=== PATIENT | male | born 1940 | race Caucasian/White ===

== ENCOUNTER 2019-08-01 06:08 | Inpatient (IN) ==
[~2019-08-01 06:08] MED LIST: Aspirin 81 MG TAB.CHEW PO ONE; Dextrose 50 % in Water (Vial) 30 ML, Sodium Bicarbonate 20 MEQ, Lidocaine 1% 5 ML, Insu... TH ONE; Dextrose 50 % in Water (Vial) 30 ML, Sodium Bicarbonate 20 MEQ, Potassium Chloride 15 M... TH ONE; Heparin 15,000 UNIT in 0.9 % Sodium Chloride 500 ML IV ONE; Insulin Human Regular 100 UNIT in 0.9 % Sodium Chloride 100 ML IV PRN; Norepinephrine 4 MG in 0.9 % Sodium Chloride 250 ML IVC PRN
[2019-08-01] MEDS ORDERED: CeFAZolin Syr 2,000MG/20 ML 2,000 MG/20 ML SYRINGE IVPB ONE (06:24)
[2019-08-01] MEDS ORDERED: Albuterol 2.5 MG/3 ML NEBULIZER IH PRN (06:27)
[2019-08-01] MEDS ORDERED: NiCARdipine 2.5 MG/10 ML Syringe IVPB ONE (06:35)
[2019-08-01] MEDS ORDERED: Nitroglycerin 25 MG/250 ML INFUS..BTL IVC ONE (06:35)
[2019-08-01] MEDS ORDERED: EPHEDrine 50 MG/ML VIAL ONE (06:45)
[2019-08-01] MEDS ORDERED: Famotidine 20 MG/2 ML VIAL ONE (06:45)
[2019-08-01] MEDS ORDERED: *HR* Rocuronium Bromide 50 MG/5 ML VIAL ONE (06:45)
[2019-08-01] MEDS ORDERED: *HR* Midazolam HCl 5 MG/5 ML VIAL IVP ONE (06:45)
[2019-08-01] MEDS ORDERED: *HR* PHENYLEPHRINE 1,000 MCG/10 ML SYRINGE IVP ONE ×2 (06:45→10:42)
[2019-08-01] MEDS ORDERED: *HR* FentaNYL (PF) 1,000 MCG/20 ML VIAL ONE (06:45)
[2019-08-01] MEDS ORDERED: *HR* Etomidate 20 MG/10 ML AMPUL IVP ONE (06:45)
[2019-08-01] MEDS ORDERED: Protamine Sulfate 250 MG/25 ML VIAL IVP ONE (06:46)
[2019-08-01] MEDS ORDERED: Calcium Gluconate 1,000 MG/10 ML VIAL ONE (06:46)
[2019-08-01] MEDS ORDERED: Tranexamic Acid 1,000 MG/10 ML VIAL ONE ×2 (06:46→09:19)
[2019-08-01] MEDS ORDERED: Verapamil 5 MG/2 ML VIAL ONE (06:56)
[2019-08-01] MEDS: Chlorhexidine Rinse 15 ML MOUTHWASH MM SCH ×3 (07:01→20:01)
[2019-08-01 08:59] LABS: ABG Base Excess -3 mEq/L (-2 to 3); ABG Chloride 109 mEq/L (98-107); ABG Glucose 161 mg/dL (60-95); ABG HCO3 24 mEq/L (21-27); ABG Ionized Calcium 1.32 mmol/L (1.15-1.35); ABG Oxygen Saturation 94 % (95-98); ABG PCO2 48 mmHg (35-45); ABG PH 7.31 pH Units (7.32-7.45); ABG PO2 79 mmHg (85-104); ABG TCO2 25 mEq/L (20-26)
[2019-08-01 09:44] LABS: ABG Base Excess -5 mEq/L (-2 to 3); ABG Chloride 111 mEq/L (98-107); ABG Glucose 197 mg/dL (60-95); ABG HCO3 21 mEq/L (21-27); ABG Ionized Calcium 1.18 mmol/L (1.15-1.35); ABG Oxygen Saturation 99 % (95-98); ABG PCO2 42 mmHg (35-45); ABG PH 7.32 pH Units (7.32-7.45); ABG PO2 146 mmHg (85-104); ABG TCO2 23 mEq/L (20-26)
[2019-08-01 09:54] LABS: ABG Base Excess 0 mEq/L (-2 to 3); ABG Chloride 104 mEq/L (98-107); ABG Glucose 261 mg/dL (60-95); ABG HCO3 25 mEq/L (21-27); ABG Ionized Calcium 1.07 mmol/L (1.15-1.35); ABG Oxygen Saturation 100 % (95-98); ABG PCO2 40 mmHg (35-45); ABG PO2 499 mmHg (85-104); ABG TCO2 26 mEq/L (20-26)
[2019-08-01 10:42] LABS: ABG Base Excess 0 mEq/L (-2 to 3); ABG Chloride 105 mEq/L (98-107); ABG Glucose 186 mg/dL (60-95); ABG HCO3 25 mEq/L (21-27); ABG Ionized Calcium 1.26 mmol/L (1.15-1.35); ABG Oxygen Saturation 100 % (95-98); ABG PCO2 41 mmHg (35-45); ABG PH 7.39 pH Units (7.32-7.45); ABG PO2 368 mmHg (85-104); ABG TCO2 26 mEq/L (20-26)
[2019-08-01] MEDS ORDERED: *HR* Magnesium Sulfate 2 GM/50 ML PIGGYBACK IVPB ONE (10:42)
[2019-08-01] MEDS ORDERED: *HR* EPINEPHrine 1 MG/10 ML SYRINGE ONE (10:42)
[2019-08-01] MEDS ORDERED: Tranexamic Acid 1,000 MG/10 ML VIAL IVP ONE (10:42)
[2019-08-01] MEDS ORDERED: *HR* Phenylephrine 10 MG/ML VIAL IVC ONE (10:42)
[2019-08-01] MEDS ORDERED: Albumin Human 25% 25 GM/100 ML IV.SOLN IV ONE (10:42)
[2019-08-01] MEDS ORDERED: Mannitol 25% vial 12.5 GM/50 ML VIAL IVP ONE (10:42)
[2019-08-01] MEDS ORDERED: *HR* Heparin 10,000 UNIT/10 ML VIAL IV ONE (10:42)
[2019-08-01] MEDS ORDERED: Lidocaine 2% Syringe 100 MG/5 ML IV ONE (10:42)
[2019-08-01 11:05] LABS: ABG Base Excess -4 mEq/L (-2 to 3); ABG Chloride 107 mEq/L (98-107); ABG Glucose 136 mg/dL (60-95); ABG HCO3 22 mEq/L (21-27); ABG Ionized Calcium 1.29 mmol/L (1.15-1.35); ABG Oxygen Saturation 97 % (95-98); ABG PCO2 45 mmHg (35-45); ABG PH 7.31 pH Units (7.32-7.45); ABG PO2 106 mmHg (85-104); ABG TCO2 24 mEq/L (20-26)
[2019-08-01] MEDS ORDERED: *HR* Promethazine 25 MG/ML VIAL IVP PRN (11:28)
[2019-08-01] MEDS ORDERED: *HR* Dextrose 50 % in Water (Syg) 50 ML SYRINGE IVP PRN (11:28)
[2019-08-01] MEDS ORDERED: Insulin Regular, Human 100 UNIT/ML IV PRN (11:28)
[2019-08-01] MEDS ORDERED: Acetaminophen 325 MG TABLET PO PRN (11:28)
[2019-08-01] MEDS ORDERED: Potassium Chloride 40 MEQ/200 ML BAG IVPB PRN (11:28)
[2019-08-01] MEDS ORDERED: Ondansetron 4 MG/2 ML VIAL IVP PRN (11:28)
[2019-08-01 11:47] LABS: ABG Base Excess 1 mEq/L (-2 to 3); ABG HCO3 26 mEq/L (21-27); ABG Oxygen Saturation 100 % (95-98); ABG PCO2 47 mmHg (35-45); ABG PH 7.36 pH Units (7.32-7.45); ABG PO2 541 mmHg (85-104); ABG TCO2 28 mEq/L (20-26); Blood Gas VT 600 cc
[2019-08-01 11:55] LABS: Basophils # 0.1 K/mcL (0.0-0.2); Basophils % 0.4 %; Eosinophils # 0.1 K/mcL (0.0-0.6); Eosinophils % 0.7 %; Immature Granulocytes % 1.1 % (0-4); Lymphocytes # 2.4 K/mcL (0.6-4.6); Lymphocytes % 12.9 %; Mean Corpuscular HGB Conc 35.5 g/dL (31.6-35.5); Mean Corpuscular Volume 93.1 fL (83.0-100.0); Mean Platelet Volume 9.5 fL (9.4-12.4); Monocytes # 1.2 K/mcL (0.0-1.3); Monocytes % 6.2 %; Neutrophils # 14.7 K/mcL (1.6-8.9); Platelet Count 274 K/mcL (140-400); Red Blood Count 3.33 M/mcL (4.19-5.50); Red Cell Distribution Width 12.9 % (11.5-14.5); Segmented Neutrophils % 78.7 %; White Blood Count 18.7 K/mcL (4.3-11.1)
[2019-08-01 12:02] LABS: INR 1.4; Prothrombin Time 15.8 Seconds (9.4-12.1)
[2019-08-01 12:05] LABS: Activated Partial Thrombo Time 28.8 Seconds (26.0-36.0)
[2019-08-01 12:10] LABS: BUN/Creatinine Ratio 15 (6-26); Blood Urea Nitrogen 19 mg/dL (8-23); Calcium 8.9 mg/dL (8.6-10.3); Carbon Dioxide 23 mEq/L (23-29); Chloride 110 mEq/L (98-107); Glucose 101 mg/dL (70-105); Magnesium 2.3 mg/dL (1.6-2.6); Osmolality,Calculated 296 (280-300); Potassium 4.1 mEq/L (3.5-5.1); Sodium 142 mEq/L (136-145); eGFR For African Americans > 60 (> 60); eGFR For Non-African Americans 56 (> 60)
[2019-08-01] MEDS ORDERED: *HR* FentaNYL (PF) 100 MCG/2 ML VIAL ONE (12:43)
[2019-08-01] MEDS: *HR* FentaNYL (PF) 100 MCG/2 ML VIAL IVP PRN ×4 (12:44→19:21)
[2019-08-01] MEDS: Nitroglycerin 25 MG/250 ML INFUS..BTL IVC SCH ×3 (12:47→21:03)
[2019-08-01] MEDS: EPINEPHrine 1 MG in D5% in Water 250 ML IVC SCH (12:49)
[2019-08-01] MEDS: Ringers Solution, Lactated 1,000 ML IVC SCH ×2 (12:50→19:00)
[2019-08-01] MEDS: niCARdipine 20 MG/200 ML MLS IVC SCH ×4 (12:54→21:03)
[2019-08-01] MEDS: 0.9 % Sodium Chloride 1,000 ML IVC SCH (13:08)
[2019-08-01] MEDS: *HR* OxyCODONE/APAP 5/325 TABLET PO PRN (13:21)
[2019-08-01] MEDS: Insulin Human Regular 100 UNIT in 0.9 % Sodium Chloride 100 ML IVC SCH (15:00)
[2019-08-01] MEDS: Norepinephrine 4 MG in 0.9 % Sodium Chloride 250 ML IVC SCH (15:00)
[2019-08-01 16:19] LABS: ABG Base Excess 1 mEq/L (-2 to 3); ABG HCO3 26 mEq/L (21-27); ABG Oxygen Saturation 99 % (95-98); ABG PCO2 42 mmHg (35-45); ABG PO2 144 mmHg (85-104); ABG TCO2 28 mEq/L (20-26); Blood Gas VT 600 cc
[2019-08-01 17:44] LABS: ABG Base Excess 0 mEq/L (-2 to 3); ABG HCO3 25 mEq/L (21-27); ABG Oxygen Saturation 98 % (95-98); ABG PCO2 44 mmHg (35-45); ABG PH 7.37 pH Units (7.32-7.45); ABG PO2 99 mmHg (85-104); ABG TCO2 27 mEq/L (20-26); Blood Gas Modality ASSIST CONTROL; Blood Gas Pressure Support 8 cm H2O
[2019-08-02] MEDS: 0.9 % Sodium Chloride 1,000 ML IVC SCH ×2 (00:31→09:43)
[2019-08-02 03:11] LABS: Basophils % 0.3 %; Eosinophils % 0.1 %; Hematocrit 32.3 % (37.5-50.1); Hemoglobin 11.1 g/dL (12.9-16.9); Immature Granulocytes % 0.3 % (0-4); Lymphocytes # 2.1 K/mcL (0.6-4.6); Lymphocytes % 20.1 %; Mean Corpuscular HGB Conc 34.4 g/dL (31.6-35.5); Mean Corpuscular Hemoglobin 33.2 pg (28.0-33.3); Mean Corpuscular Volume 96.7 fL (83.0-100.0); Mean Platelet Volume 10.1 fL (9.4-12.4); Monocytes # 1.4 K/mcL (0.0-1.3); Monocytes % 13.1 %; Neutrophils # 6.9 K/mcL (1.6-8.9); Platelet Count 242 K/mcL (140-400); Red Blood Count 3.34 M/mcL (4.19-5.50); Red Cell Distribution Width 13.3 % (11.5-14.5); Segmented Neutrophils % 66.1 %; White Blood Count 10.5 K/mcL (4.3-11.1)
[2019-08-02 03:30] LABS: BUN/Creatinine Ratio 16 (6-26); Blood Urea Nitrogen 19 mg/dL (8-23); Calcium 8.4 mg/dL (8.6-10.3); Carbon Dioxide 23 mEq/L (23-29); Chloride 111 mEq/L (98-107); Glucose 140 mg/dL (70-105); Osmolality,Calculated 297 (280-300); Potassium 4.1 mEq/L (3.5-5.1); Sodium 141 mEq/L (136-145); eGFR For African Americans > 60 (> 60); eGFR For Non-African Americans 58 (> 60)
[2019-08-02] MEDS: *HR* OxyCODONE/APAP 5/325 TABLET PO PRN ×4 (05:29→19:33)
[2019-08-02] MEDS: niCARdipine 20 MG/200 ML MLS IVC SCH ×2 (08:10→09:39)
[2019-08-02] MEDS ORDERED: Pantoprazole 40 MG VIAL IVP SCH (09:00)
[2019-08-02] MEDS ORDERED: Aspirin Enteric Coated 81 MG Tablet PO SCH (09:00)
[2019-08-02] MEDS: Chlorhexidine Rinse 15 ML MOUTHWASH MM SCH ×2 (09:27→19:32)
[2019-08-02] MEDS: EPINEPHrine 1 MG in D5% in Water 250 ML IVC SCH (09:30)
[2019-08-02] MEDS ORDERED: *HR* Promethazine 25 MG/ML VIAL IVP PRN (09:43)
[2019-08-02] MEDS ORDERED: D5% in Water 1,000 ML IVC PRN (09:43)
[2019-08-02] MEDS ORDERED: Dextrose Gel 15 GM/37.5 ML TUBE PO PRN ×2 (09:43)
[2019-08-02] MEDS: Insulin Human Regular 100 UNIT in 0.9 % Sodium Chloride 100 ML IVC SCH (09:43)
[2019-08-02] MEDS ORDERED: Ondansetron 4 MG/2 ML VIAL IVP PRN (09:43)
[2019-08-02] MEDS ORDERED: Nitroglycerin 0.4 MG TAB.SUBL SL PRN (09:43)
[2019-08-02] MEDS: Norepinephrine 4 MG in 0.9 % Sodium Chloride 250 ML IVC SCH (09:43)
[2019-08-02] MEDS ORDERED: *HR* Dextrose 50 % in Water (Syg) 50 ML SYRINGE IVP PRN (09:43)
[2019-08-02] MEDS: Insulin LISPRO 300 UNITS/3 ML VIAL SQ SCH ×3 (10:16→19:33)
[2019-08-02] MEDS: *HR* Heparin 5,000 UNIT/ML VIAL SQ SCH (18:08)
[2019-08-03 04:03] LABS: Basophils % 0.3 %; Eosinophils % 0.2 %; Hemoglobin 10.7 g/dL (12.9-16.9); Immature Granulocytes % 0.5 % (0-4); Lymphocytes # 2.2 K/mcL (0.6-4.6); Lymphocytes % 19.1 %; Mean Corpuscular HGB Conc 33.4 g/dL (31.6-35.5); Mean Corpuscular Hemoglobin 32.8 pg (28.0-33.3); Mean Corpuscular Volume 98.2 fL (83.0-100.0); Mean Platelet Volume 10.7 fL (9.4-12.4); Monocytes # 1.3 K/mcL (0.0-1.3); Monocytes % 11.3 %; Platelet Count 217 K/mcL (140-400); Red Blood Count 3.26 M/mcL (4.19-5.50); Red Cell Distribution Width 13.2 % (11.5-14.5); Segmented Neutrophils % 68.6 %; White Blood Count 11.7 K/mcL (4.3-11.1)
[2019-08-03 04:22] LABS: BUN/Creatinine Ratio 17 (6-26); Blood Urea Nitrogen 21 mg/dL (8-23); Calcium 8.5 mg/dL (8.6-10.3); Carbon Dioxide 20 mEq/L (23-29); Chloride 109 mEq/L (98-107); Glucose 156 mg/dL (70-105); Osmolality,Calculated 294 (280-300); Potassium 3.9 mEq/L (3.5-5.1); Sodium 139 mEq/L (136-145); eGFR For African Americans > 60 (> 60); eGFR For Non-African Americans 57 (> 60)
[2019-08-03] MEDS: *HR* Heparin 5,000 UNIT/ML VIAL SQ SCH ×2 (05:05→17:57)
[2019-08-03] MEDS: Aspirin Enteric Coated 81 MG Tablet PO SCH (07:59)
[2019-08-03] MEDS: Chlorhexidine Rinse 15 ML MOUTHWASH MM SCH ×2 (07:59→20:20)
[2019-08-03] MEDS: Insulin LISPRO 300 UNITS/3 ML VIAL SQ SCH ×4 (08:00→20:22)
[2019-08-03] MEDS: Pantoprazole 40 MG VIAL IVP SCH (08:00)
[2019-08-03] MEDS: Acetaminophen 325 MG TABLET PO PRN (20:21)
[2019-08-04] MEDS: *HR* OxyCODONE/APAP 5/325 TABLET PO PRN (02:02)
[2019-08-04] MEDS: *HR* Heparin 5,000 UNIT/ML VIAL SQ SCH ×2 (06:15→16:38)
[2019-08-04 06:49] LABS: Basophils % 0.3 %; Eosinophils % 0.1 %; Hematocrit 35.2 % (37.5-50.1); Hemoglobin 11.5 g/dL (12.9-16.9); Immature Granulocytes % 0.5 % (0-4); Lymphocytes # 2.1 K/mcL (0.6-4.6); Lymphocytes % 21.2 %; Mean Corpuscular HGB Conc 32.7 g/dL (31.6-35.5); Mean Corpuscular Hemoglobin 32.9 pg (28.0-33.3); Mean Corpuscular Volume 100.6 fL (83.0-100.0); Mean Platelet Volume 10.7 fL (9.4-12.4); Monocytes % 10.2 %; Neutrophils # 6.8 K/mcL (1.6-8.9); Platelet Count 242 K/mcL (140-400); Segmented Neutrophils % 67.7 %; White Blood Count 10.1 K/mcL (4.3-11.1)
[2019-08-04 06:50] LABS: BUN/Creatinine Ratio 15 (6-26); Blood Urea Nitrogen 17 mg/dL (8-23); Calcium 9.2 mg/dL (8.6-10.3); Carbon Dioxide 22 mEq/L (23-29); Chloride 107 mEq/L (98-107); Glucose 189 mg/dL (70-105); Osmolality,Calculated 297 (280-300); Potassium 3.6 mEq/L (3.5-5.1); Sodium 140 mEq/L (136-145); eGFR For African Americans > 60 (> 60); eGFR For Non-African Americans > 60 (> 60)
[2019-08-04] MEDS: Insulin LISPRO 300 UNITS/3 ML VIAL SQ SCH ×4 (10:29→20:11)
[2019-08-04] MEDS: Pantoprazole 40 MG VIAL IVP SCH (10:32)
[2019-08-04] MEDS: Aspirin Enteric Coated 81 MG Tablet PO SCH (10:32)
[2019-08-04] MEDS: Chlorhexidine Rinse 15 ML MOUTHWASH MM SCH ×2 (10:32→20:43)
[2019-08-04] MEDS: Ibuprofen 600 MG TABLET PO PRN (20:55)
[2019-08-05 01:16] LABS: Basophils % 0.4 %; Eosinophils # 0.1 K/mcL (0.0-0.6); Eosinophils % 1.6 %; Hematocrit 31.3 % (37.5-50.1); Hemoglobin 10.6 g/dL (12.9-16.9); Immature Granulocytes % 0.3 % (0-4); Lymphocytes # 3.1 K/mcL (0.6-4.6); Lymphocytes % 34.5 %; Mean Corpuscular HGB Conc 33.9 g/dL (31.6-35.5); Mean Corpuscular Hemoglobin 33.1 pg (28.0-33.3); Mean Corpuscular Volume 97.8 fL (83.0-100.0); Mean Platelet Volume 11.3 fL (9.4-12.4); Monocytes # 0.9 K/mcL (0.0-1.3); Neutrophils # 4.8 K/mcL (1.6-8.9); Platelet Count 318 K/mcL (140-400); Red Cell Distribution Width 13.1 % (11.5-14.5); Segmented Neutrophils % 53.2 %
[2019-08-05 01:36] LABS: BUN/Creatinine Ratio 14 (6-26); Blood Urea Nitrogen 19 mg/dL (8-23); Calcium 9.3 mg/dL (8.6-10.3); Carbon Dioxide 21 mEq/L (23-29); Chloride 109 mEq/L (98-107); Glucose 180 mg/dL (70-105); Osmolality,Calculated 293 (280-300); Potassium 3.7 mEq/L (3.5-5.1); Sodium 138 mEq/L (136-145); eGFR For African Americans > 60 (> 60); eGFR For Non-African Americans 51 (> 60)
[2019-08-05 01:58] LABS: Folate 4.9 ng/mL (3.0-16.0)
[2019-08-05] MEDS: *HR* Heparin 5,000 UNIT/ML VIAL SQ SCH ×2 (05:04→16:56)
[2019-08-05] MEDS: Aspirin Enteric Coated 81 MG Tablet PO SCH (07:52)
[2019-08-05] MEDS: Chlorhexidine Rinse 15 ML MOUTHWASH MM SCH ×2 (07:52→21:06)
[2019-08-05] MEDS: Pantoprazole 40 MG VIAL IVP SCH (07:52)
[2019-08-05] MEDS: Insulin LISPRO 300 UNITS/3 ML VIAL SQ SCH ×4 (07:53→21:07)
[2019-08-05] MEDS: Ibuprofen 600 MG TABLET PO PRN (21:05)
[2019-08-06 03:45] LABS: BUN/Creatinine Ratio 16 (6-26); Blood Urea Nitrogen 22 mg/dL (8-23); Calcium 9.1 mg/dL (8.6-10.3); Carbon Dioxide 21 mEq/L (23-29); Chloride 111 mEq/L (98-107); Glucose 151 mg/dL (70-105); Osmolality,Calculated 296 (280-300); Potassium 3.8 mEq/L (3.5-5.1); Sodium 140 mEq/L (136-145); eGFR For African Americans > 60 (> 60); eGFR For Non-African Americans 51 (> 60)
[2019-08-06] MEDS: *HR* Heparin 5,000 UNIT/ML VIAL SQ SCH ×2 (05:13→17:07)
[2019-08-06] MEDS: Chlorhexidine Rinse 15 ML MOUTHWASH MM SCH ×2 (07:43→20:50)
[2019-08-06] MEDS: Pantoprazole 40 MG VIAL IVP SCH (07:43)
[2019-08-06] MEDS: Aspirin Enteric Coated 81 MG Tablet PO SCH (07:44)
[2019-08-06] MEDS: Insulin LISPRO 300 UNITS/3 ML VIAL SQ SCH ×4 (07:44→20:51)
[2019-08-06] MEDS: Ibuprofen 600 MG TABLET PO PRN (20:51)
[2019-08-07] MEDS: *HR* Heparin 5,000 UNIT/ML VIAL SQ SCH ×2 (05:50→16:40)
[2019-08-07 06:10] LABS: Basophils # 0.1 K/mcL (0.0-0.2); Eosinophils # 0.2 K/mcL (0.0-0.6); Eosinophils % 3.3 %; Hematocrit 31.4 % (37.5-50.1); Hemoglobin 10.8 g/dL (12.9-16.9); Immature Granulocytes % 0.5 % (0-4); Lymphocytes # 2.3 K/mcL (0.6-4.6); Lymphocytes % 40.3 %; Mean Corpuscular HGB Conc 34.4 g/dL (31.6-35.5); Mean Corpuscular Hemoglobin 32.8 pg (28.0-33.3); Mean Corpuscular Volume 95.4 fL (83.0-100.0); Mean Platelet Volume 10.3 fL (9.4-12.4); Monocytes # 0.6 K/mcL (0.0-1.3); Monocytes % 9.5 %; Neutrophils # 2.6 K/mcL (1.6-8.9); Platelet Count 362 K/mcL (140-400); Red Blood Count 3.29 M/mcL (4.19-5.50); Red Cell Distribution Width 12.9 % (11.5-14.5); Segmented Neutrophils % 45.4 %; White Blood Count 5.8 K/mcL (4.3-11.1)
[2019-08-07 06:30] LABS: Calcium 9.5 mg/dL (8.6-10.3); Potassium 3.8 mEq/L (3.5-5.1)
[2019-08-07] MEDS: Pantoprazole 40 MG VIAL IVP SCH (07:16)
[2019-08-07] MEDS: Chlorhexidine Rinse 15 ML MOUTHWASH MM SCH ×2 (07:16→20:46)
[2019-08-07] MEDS: Insulin LISPRO 300 UNITS/3 ML VIAL SQ SCH ×4 (07:16→20:47)
[2019-08-07] MEDS: Aspirin Enteric Coated 81 MG Tablet PO SCH (07:17)
[2019-08-07] MEDS: Ibuprofen 600 MG TABLET PO PRN (20:46)
[2019-08-08] MEDS: *HR* Heparin 5,000 UNIT/ML VIAL SQ SCH ×2 (05:46→16:42)
[2019-08-08] MEDS: Chlorhexidine Rinse 15 ML MOUTHWASH MM SCH ×2 (07:57→21:01)
[2019-08-08] MEDS: Aspirin Enteric Coated 81 MG Tablet PO SCH (07:58)
[2019-08-08] MEDS: Insulin LISPRO 300 UNITS/3 ML VIAL SQ SCH ×4 (07:58→21:01)
[2019-08-08] MEDS: Pantoprazole 40 MG VIAL IVP SCH (07:58)
[2019-08-08 09:48] LABS: Basophils # 0.1 K/mcL (0.0-0.2); Basophils % 0.8 %; Eosinophils # 0.2 K/mcL (0.0-0.6); Eosinophils % 2.7 %; Hematocrit 32.6 % (37.5-50.1); Hemoglobin 10.9 g/dL (12.9-16.9); Immature Granulocytes % 0.6 % (0-4); Lymphocytes # 1.8 K/mcL (0.6-4.6); Lymphocytes % 28.1 %; Mean Corpuscular HGB Conc 33.4 g/dL (31.6-35.5); Mean Corpuscular Hemoglobin 32.7 pg (28.0-33.3); Mean Corpuscular Volume 97.9 fL (83.0-100.0); Monocytes # 0.5 K/mcL (0.0-1.3); Monocytes % 8.6 %; Neutrophils # 3.7 K/mcL (1.6-8.9); Platelet Count 389 K/mcL (140-400); Red Blood Count 3.33 M/mcL (4.19-5.50); Red Cell Distribution Width 12.8 % (11.5-14.5); Segmented Neutrophils % 59.2 %; White Blood Count 6.3 K/mcL (4.3-11.1)
[2019-08-08 10:09] LABS: BUN/Creatinine Ratio 18 (6-26); Blood Urea Nitrogen 25 mg/dL (8-23); Calcium 9.9 mg/dL (8.6-10.3); Carbon Dioxide 22 mEq/L (23-29); Chloride 109 mEq/L (98-107); Glucose 141 mg/dL (70-105); Osmolality,Calculated 295 (280-300); Potassium 3.8 mEq/L (3.5-5.1); Sodium 139 mEq/L (136-145); eGFR For African Americans > 60 (> 60); eGFR For Non-African Americans 50 (> 60)
[2019-08-08] MEDS: Ibuprofen 600 MG TABLET PO PRN (23:07)
[2019-08-09] MEDS: *HR* Heparin 5,000 UNIT/ML VIAL SQ SCH ×2 (06:22→17:31)
[2019-08-09 08:16] LABS: BUN/Creatinine Ratio 21 (6-26); Blood Urea Nitrogen 27 mg/dL (8-23); Calcium 9.6 mg/dL (8.6-10.3); Carbon Dioxide 20 mEq/L (23-29); Chloride 109 mEq/L (98-107); Glucose 137 mg/dL (70-105); Osmolality,Calculated 293 (280-300); Potassium 4.1 mEq/L (3.5-5.1); Sodium 138 mEq/L (136-145); eGFR For African Americans > 60 (> 60); eGFR For Non-African Americans 54 (> 60)
[2019-08-09] MEDS: Pantoprazole 40 MG VIAL IVP SCH (08:39)
[2019-08-09] MEDS: Aspirin Enteric Coated 81 MG Tablet PO SCH (08:39)
[2019-08-09] MEDS: Chlorhexidine Rinse 15 ML MOUTHWASH MM SCH ×2 (08:39→20:43)
[2019-08-09] MEDS: Insulin LISPRO 300 UNITS/3 ML VIAL SQ SCH ×4 (08:41→20:38)
[2019-08-10] MEDS: *HR* Heparin 5,000 UNIT/ML VIAL SQ SCH ×2 (06:32→16:41)
[2019-08-10] MEDS: Insulin LISPRO 300 UNITS/3 ML VIAL SQ SCH ×4 (07:48→21:42)
[2019-08-10] MEDS: Chlorhexidine Rinse 15 ML MOUTHWASH MM SCH ×2 (07:49→21:38)
[2019-08-10] MEDS: Pantoprazole 40 MG VIAL IVP SCH (07:49)
[2019-08-10] MEDS: Aspirin Enteric Coated 81 MG Tablet PO SCH (07:49)
[2019-08-10] MEDS: Ibuprofen 600 MG TABLET PO PRN (21:38)
[2019-08-11] MEDS: *HR* Heparin 5,000 UNIT/ML VIAL SQ SCH ×2 (05:38→16:26)
[2019-08-11] MEDS: Aspirin Enteric Coated 81 MG Tablet PO SCH (09:38)
[2019-08-11] MEDS: Chlorhexidine Rinse 15 ML MOUTHWASH MM SCH ×2 (09:38→20:31)
[2019-08-11] MEDS: Insulin LISPRO 300 UNITS/3 ML VIAL SQ SCH ×4 (09:40→20:31)
[2019-08-11] MEDS: Pantoprazole 40 MG VIAL IVP SCH (09:40)
[2019-08-12] MEDS: *HR* Heparin 5,000 UNIT/ML VIAL SQ SCH ×2 (04:59→17:34)
[2019-08-12] MEDS: Insulin LISPRO 300 UNITS/3 ML VIAL SQ SCH ×4 (07:31→20:24)
[2019-08-12] MEDS: Chlorhexidine Rinse 15 ML MOUTHWASH MM SCH ×2 (07:33→20:29)
[2019-08-12] MEDS: Aspirin Enteric Coated 81 MG Tablet PO SCH (07:35)
[2019-08-12] MEDS: Acetaminophen 325 MG TABLET PO PRN (16:10)
[2019-08-12] MEDS: Ibuprofen 600 MG TABLET PO PRN (16:10)
[2019-08-12] MEDS ORDERED: *HR* OxyCODONE/APAP 5/325 TABLET PO PRN (16:35)
[2019-08-13] MEDS: *HR* Heparin 5,000 UNIT/ML VIAL SQ SCH ×2 (05:34→18:09)
[2019-08-13] MEDS: Aspirin Enteric Coated 81 MG Tablet PO SCH (08:58)
[2019-08-13] MEDS: Insulin LISPRO 300 UNITS/3 ML VIAL SQ SCH ×4 (08:58→21:05)
[2019-08-13] MEDS: Chlorhexidine Rinse 15 ML MOUTHWASH MM SCH ×2 (08:58→21:13)
[2019-08-14] MEDS: *HR* Heparin 5,000 UNIT/ML VIAL SQ SCH ×2 (06:32→17:01)
[2019-08-14] MEDS: Chlorhexidine Rinse 15 ML MOUTHWASH MM SCH ×2 (08:17→21:51)
[2019-08-14] MEDS: Aspirin Enteric Coated 81 MG Tablet PO SCH (08:17)
[2019-08-14] MEDS: Insulin LISPRO 300 UNITS/3 ML VIAL SQ SCH ×4 (08:19→21:48)
[2019-08-15] MEDS: *HR* Heparin 5,000 UNIT/ML VIAL SQ SCH ×2 (06:29→16:04)
[2019-08-15] MEDS: Chlorhexidine Rinse 15 ML MOUTHWASH MM SCH ×2 (08:57→21:11)
[2019-08-15] MEDS: Aspirin Enteric Coated 81 MG Tablet PO SCH (08:57)
[2019-08-15] MEDS: Insulin LISPRO 300 UNITS/3 ML VIAL SQ SCH ×4 (08:57→21:14)
[2019-08-15] MEDS: Acetaminophen 325 MG TABLET PO PRN (11:05)
[2019-08-15] MEDS: Ibuprofen 600 MG TABLET PO PRN (11:05)
[2019-08-16] MEDS: *HR* Heparin 5,000 UNIT/ML VIAL SQ SCH ×2 (05:11→17:56)
[2019-08-16] MEDS: Insulin LISPRO 300 UNITS/3 ML VIAL SQ SCH ×3 (08:55→17:55)
[2019-08-16] MEDS: Aspirin Enteric Coated 81 MG Tablet PO SCH (08:56)
[2019-08-16] MEDS: Chlorhexidine Rinse 15 ML MOUTHWASH MM SCH ×2 (08:56→19:31)
[2019-08-17] MEDS: Insulin LISPRO 300 UNITS/3 ML VIAL SQ SCH ×3 (06:12→11:50)
[2019-08-17] MEDS: *HR* Heparin 5,000 UNIT/ML VIAL SQ SCH (06:21)
[2019-08-17] MEDS: Chlorhexidine Rinse 15 ML MOUTHWASH MM SCH (07:59)
[2019-08-17] MEDS: Aspirin Enteric Coated 81 MG Tablet PO SCH (07:59)
[2019-08-17 11:51] VITALS: BP 106/68
== END 2019-08-17 18:30 | DRG 236 ==
LOC: SAMDAY 06:08 → ICNU 12:12 → 2NNU 08-03 12:34 → ICNU 08-03 12:56 → 2NNU 08-03 16:56
PROVIDERS: ADMIT Thoracic Surgery (Cardiothoracic Vascular Surgery); ATTEND Thoracic Surgery (Cardiothoracic Vascular Surgery)